=== PATIENT | male | born 1970 | race Caucasian/White ===

== ENCOUNTER 2018-06-29 13:20 | Emergency (ER) | payer OTHER ==
[2018-06-29 14:47] LABS: Absolute Lymphocytes (CBC) 2.2 K/uL (0.7-4.9); Absolute Monocytes 0.5 K/uL (0.1-1.3); Absolute Neutrophil 6.2 K/uL (1.8-8.0); Basophils % 1.2 % (0-1.3); Eosinophils % 3.9 % (0-4.4); Hematocrit 40.6 % (39.6-49.0); Lymphocytes % 23.3 % (15.3-44.8); MCH 32.1 pg (27.0-35.0); MCV 91.6 fL (80-100); MPV 9.7 fL (7.6-11.3); Monocytes % 4.9 % (3.3-12.3); RBC Red Blood Cell Count 4.43 M/uL (4.33-5.43)
[2018-06-29 14:51] LABS: Protime INR 0.98
[2018-06-29 14:54] LABS: Barbiturates NEGATIVE (NEGATIVE); Benzodiazepines NEGATIVE (NEGATIVE); Cocaine NEGATIVE (NEGATIVE); METHAMPHETAM POSITIVE (NEGATIVE); Methadone NEGATIVE (NEGATIVE); Opiates NEGATIVE (NEGATIVE); Phencyclidine NEGATIVE (NEGATIVE); THC Cannibis NEGATIVE (NEGATIVE)
[2018-06-29 15:08] LABS: ALT/SGPT 38 U/L (12-78); AST/SGOT 15 U/L (15-37); Albumin 3.4 g/dL (3.4-5.0); Alkaline Phosphatase 66 U/L (45-117); BUN Blood Urea Nitrogen 18 mg/dL (7-18); Bicarbonate 25 mmol/L (21-32); Bilirubin Direct 0.1 mg/dL (0-0.2); Bilirubin Total 0.3 mg/dL (0.2-1.0); Glucose Level 126 mg/dL (74-106); Potassium 4.3 mmol/L (3.5-5.1); Protein, Total 6.2 g/dL (6.4-8.2); Sodium Level 143 mmol/L (136-145)
--- NOTE | 2018-06-29 16:33 | EDPHYS ---
Physician Documentation [facility] Name: Derrick Phillips Age: 47 yrs Sex: Male : 1970 Arrival Date: 06/29/2018 Time: 13:25 Bed 19 Private MD: ED Physician Juventino Luna HPI: 06/29 13:54 This 47 yrs old Male presents to ER via Ambulatory with complaints of Psych jmm Problem. 13:54 The patient presents to the emergency department with psychosis, has experienced jmm auditory hallucinations, voices are telling patient to commit sucide. Onset: The symptoms/episode began/occurred at an unknown time. Past psychiatric history: Psychiatric medications include: none, the patient has a previous inpatient psychiatric history. This is a 47 year old male with a history of htn that presents to the ED with complaints of auditory hallucinations which are derogatory. Patient states walking onto incoming traffic, passing red lights due to distress from these voices. Patient states he can not read, watch tv, talk to others without hearing hallucinations. . Historical: - Allergies: 13:37 No Known Allergies; la1 - Home Meds: 13:45 None [Active]; rb1 - PMHx: 13:37 Bipolar disorder; BPH; Hypertension; Schizophrenia; traumatic brain injury; la1 - PSHx: 13:45 ankle sx; Knee surgery; Vasectomy; rb1 - Immunization history:: Adult Immunizations up to date. - Social history:: Smoking status: Patient uses tobacco products, smokes one-half pack cigarettes per day. - Ebola Screening: : No symptoms or risks identified at this time. ROS: 13:54 Constitutional: Negative for fever, chills, and weight loss, Cardiovascular: Negative jmm for chest pain, palpitations, and edema, Respiratory: Negative for shortness of breath, cough, wheezing, and pleuritic chest pain. 13:54 Psych: Positive for auditory hallucinations. 13:54 All other systems are negative. Exam: 13:54 Constitutional: This is a well developed, well nourished patient who is awake, alert, jmm and in no acute distress. Head/Face: atraumatic. Eyes: EOMI, no conjunctival erythema appreciated ENT: Moist Mucus Membranes Neck: Trachea midline, Supple Chest/axilla: Normal chest wall appearance and motion. Cardiovascular: Regular rate and rhythm. No edema appreciated Respiratory: Normal respirations, no respiratory distress appreciated Abdomen/GI: Non distended, soft Back: Normal ROM Skin: General appearance color normal MS/ Extremity: Moves all extremities, no obvious deformities appreciated, no edema noted to the lower extremities Neuro: Awake and alert, normal gait 13:54 Psych: Behavior/mood is pleasant, cooperative, anxious, Delusions/hallucinations Vital Signs: 13:38 BP 131 / 106; Pulse 86; Resp 16; Temp 97.4; Pulse Ox 98% on R/A; Weight 81.65 kg; la1 Height 5 ft. 9 in. (175.26 cm); 16:30 BP 138 / 88; Pulse 68; Resp 17; Temp 98.5(O); Pulse Ox 100% on R/A; rb1 17:20 BP 134 / 83; Pulse 82; Resp 17; Pulse Ox 98% on R/A; rb1 13:38 Body Mass Index 26.58 (81.65 kg, 175.26 cm) la1 MDM: 14:32 Patient medically screened. [facility] 16:31 Data reviewed: vital signs, nurses notes. Counseling: I had a detailed discussion with isabela the patient and/or guardian regarding: the historical points, exam findings, and any diagnostic results supporting the discharge/admit diagnosis, lab results, the need to transfer to another facility. ED course: I discussed the patient with Dr. Burton whom accepted transfer. 06/29 14:02 Order name: Urine Dipstick--Ancillary (enter results) 06/29 14:42 Order name: Basic Metabolic Panel; Complete Time: 15:20 [facility] 06/29 14:42 Order name: Liver (Hepatic) Function; Complete Time: 15:20 [facility] 06/29 14:42 Order name: Acetaminophen Level; Complete Time: 15:20 [facility] 06/29 14:42 Order name: Alcohol Serum/Plasma; Complete Time: 15:20 [facility] 06/29 13:54 Order name: EKG; Complete Time: 15:01 [facility] 06/29 13:54 Order name: EKG - Nurse/Tech; Complete Time: 14:47 [facility] 06/29 13:54 Order name: IV Saline Lock; Complete Time: 14:34 [facility] 06/29 13:54 Order name: Labs collected and sent; Complete Time: 14:34 [facility] 06/29 13:54 Order name: Urine Dipstick-Ancillary (obtain specimen); Complete Time: 14:34 [facility] 06/29 14:42 Order name: Salicylates Level; Complete Time: 15:00 [facility] 06/29 14:42 Order name: CBC with Automated Diff; Complete Time: 15:00 [facility] 06/29 14:42 Order name: Protime (+INR); Complete Time: 15:20 [facility] 06/29 14:42 Order name: PTT, Activated Partial Thromb; Complete Time: 15:20 [facility] 06/29 14:42 Order name: Urine Drug Screen; Complete Time: 15:00 [facility] 06/29 15:39 Order name: Diet Regular; Complete Time: 15:39 dh3 Administered Medications: No medications were administered Disposition: 18:08 Co-signature as Attending Physician, Juventino Luna MD. rn Disposition: 06/29/18 16:33 Transfer ordered to [facility]. Diagnosis are Unspecified psychosis not due to a substance or known physiological condition, Auditory hallucinations. - Reason for transfer: Higher level of care. - Accepting physician is Josephine. - Condition is Stable. - Problem is an acute exacerbation. - Symptoms are unchanged. Signatures: Dispatcher [employer] EDMS Albino Joshi PA PA [facility] Juventino Luna MD MD rn Attema, Lee, RN RN la1 Nu Moulton RN RN rb1 Corrections: (The following items were deleted from the chart) 15:34 15:00 ACETAMINOPHEN+C.LAB.BRZ ordered. EDMS EDMS 15:34 15:00 BASIC METABOLIC PANEL+C.LAB.BRZ ordered. EDMS EDMS 15:34 15:00 CBC+H.LAB.BRZ ordered. EDMS EDMS 15:34 15:00 ETHANOL+C.LAB.BRZ ordered. EDMS EDMS 15:34 15:00 HEPATIC FUNCTION+C.LAB.BRZ ordered. EDMS EDMS 15:34 15:01 PROTIME (+INR)+COAG.LAB.BRZ ordered. EDMS EDMS 15:34 15:01 PTT, ACTIVATED+COAG.LAB.BRZ ordered. EDMS EDMS 15:34 15:01 SALICYLATE+C.LAB.BRZ ordered. EDMS EDMS 15:34 15:01 URINE DRUG SCREEN+CHEM UR.LAB.BRZ ordered. EDMS EDMS 17:47 16:33 06/29/2018 16:33 Transfer ordered to Psych Facility. Diagnosis is Unspecified rb1 psychosis not due to a substance or known physiological condition; Auditory hallucinations. Reason for transfer: Higher level of care. Accepting physician is Josephine. Condition is Stable. Problem is an acute exacerbation. Symptoms are unchanged. isabela
--- NOTE | 2018-06-29 16:33 | ER ---
Nurse's Notes [facility] Name: Derrick Phillips Age: 47 yrs Sex: Male : 1970 Arrival Date: 06/29/2018 Time: 13:25 Bed 19 Private MD: Diagnosis: Unspecified psychosis not due to a substance or known physiological condition;Auditory hallucinations Presentation: 06/29 13:34 Presenting complaint:. Presenting complaint: Patient states: I am having auditory la1 hallucinations that are evil and telling me people are talking bad about me and telling me to do things like hang myself. Pt states he also has visual hallucinations (shadows etc). Transition of care: patient was not received from another setting of care. Onset of symptoms was June 29, 2018. Risk Assessment:. Risk Assessment: Do you want to hurt yourself or someone else? Patient reports desire/thoughts of hurting themselves or someone else. Provider notified. Initial Sepsis Screen: Does the patient meet any 2 criteria? No. Patient's initial sepsis screen is negative. Does the patient have a suspected source of infection? No. Patient's initial sepsis screen is negative. Care prior to arrival: None. 13:34 Method Of Arrival: Ambulatory la1 13:34 Acuity: AARON 2 la1 Historical: - Allergies: 13:37 No Known Allergies; la1 - Home Meds: 13:45 None [Active]; rb1 - PMHx: 13:37 Bipolar disorder; BPH; Hypertension; Schizophrenia; traumatic brain injury; la1 - PSHx: 13:45 ankle sx; Knee surgery; Vasectomy; rb1 - Immunization history:: Adult Immunizations up to date. - Social history:: Smoking status: Patient uses tobacco products, smokes one-half pack cigarettes per day. - Ebola Screening: : No symptoms or risks identified at this time. Screenin:45 Abuse screen: Denies threats or abuse. Nutritional screening: No deficits noted. rb1 Tuberculosis screening: No symptoms or risk factors identified. Fall Risk None identified. Assessment: 13:45 General: Appears comfortable, Behavior is anxious, Denies fever. Pain: Complains of rb1 pain in tooth left bottom jaw Pain currently is 6 out of 10 on a pain scale. Neuro: Level of Consciousness is awake, alert, obeys commands, Oriented to person, place, time, situation, Reports dizziness, weakness Hears auditory voices telling him to hurt himself. Pt. denies wanting to hurt himself or others, that is why he came here today to receive help. Cardiovascular: Capillary refill < 3 seconds is brisk in bilateral fingers. Respiratory: Airway is patent Respiratory effort is even, unlabored, Respiratory pattern is regular, symmetrical. GI: No signs and/or symptoms were reported involving the gastrointestinal system. : Reports hesitancy. Derm: Skin is pink, warm \\T\\ dry. Musculoskeletal: Range of motion: intact in all extremities. 14:45 Reassessment: Patient appears in no apparent distress at this time. No changes from rb1 previously documented assessment. Friend at bedside. 14:45 Reassessment: Patient appears in no apparent distress at this time. Patient and/or rb1 family updated on plan of care and expected duration. Pain level reassessed. Patient is alert, oriented x 3, equal unlabored respirations, skin warm/dry/pink. 15:20 Reassessment: Personal belongings were sent with security to the [facility]. rb1 15:40 Reassessment: Patient appears in no apparent distress at this time. No changes from rb1 previously documented assessment. 16:08 Reassessment: Spoke to ROSEMARY Luong from [facility]. Information from the [facility] was rb1 given. All questions asked and answered. 16:20 Reassessment: Spoke to ROSEMARY Solorzano at [facility]. Information from the [facility] was given. All rb1 questions asked and answered. Doctor Watkins [phone] for Doctor to doctor. 16:25 Reassessment: Spoke to ROSEMARY Frost. Information from the [facility] was given. All questions rb1 asked and answered. Dr. Bah for doctor to doctor. 16:40 Reassessment: Patient appears in no apparent distress at this time. Patient and/or rb1 family updated on plan of care and expected duration. Pain level reassessed. Patient is alert, oriented x 3, equal unlabored respirations, skin warm/dry/pink. 17:10 Reassessment: [facility] is here to transport the pt. but the pt. stated, "I rb1 changed my mind, I don't want to go now.". 17:15 Reassessment: Patient appears in no apparent distress at this time. No changes from rb1 previously documented assessment. Pt. wants to wait for his son to get here before he goes anywhere. the son is in the area and was stopping to get food before returning to the hospital. Pt. was given a sandwich, chips, and soda to eat. Psych: 13:45 Subjective: Hallucinations are auditory. Objective: Patient is cooperative, Speech is rb1 normal, Affect is appropriate. Interventions: Removed personal items and placed in bag. Patient placed in hospital gown. Searched person for dangerous items. Urine collected and sent for urine drug test. Belonging list filled out. Commitment: Patient will be a voluntary commitment. 13:45 Suicide Risk Assessment: Sad Person Scale: Sex of patient: Male: Score 1 point. Age of rb1 patient: Score 0 point if patient falls outside of specified age parameters. Depression: Score 1 point if signs of depression are present. Previous Attempt: Score 1 point if patient has previously attempted suicide. Substance Abuse: Score 1 point if patient abuses alcohol or drugs. Rational Thinking: Score 0 point if patient has rational thinking. Social Support: Score 0 if social support is present/available. Organized Plan: Score 0 if patient did not have an organized plan in place. Relationship: Score 1 point if patient is , , , or for a single male Chronic Sickness: Score 1 point if patient has illness, chronic, debilitating, or severe. TOTAL POINTS: If total points are 5-6, proposed clinical action is to strongly consider hospitalization, depending upon confidence in the follow-up arrangement. Implement suicide precautions. Patient uses methamphetamines unknown weekly. Last use was unknown. 13:45 Safety Checks: Personal items have been removed. Door is open. Visitors are present. rb1 Vital Signs: 13:38 BP 131 / 106; Pulse 86; Resp 16; Temp 97.4; Pulse Ox 98% on R/A; Weight 81.65 kg; la1 Height 5 ft. 9 in. (175.26 cm); 16:30 BP 138 / 88; Pulse 68; Resp 17; Temp 98.5(O); Pulse Ox 100% on R/A; rb1 17:20 BP 134 / 83; Pulse 82; Resp 17; Pulse Ox 98% on R/A; rb1 13:38 Body Mass Index 26.58 (81.65 kg, 175.26 cm) la1 ED Course: 13:25 Patient arrived in ED. sb2 13:36 Triage completed. la1 13:37 Arm band placed on right wrist. la1 13:40 Safety checks: Items removed: yes. Door open/sign placed on door: yes. Family/friend dh3 present: yes. Family/friends encouraged to stay with patient. Sitter present: Yes. 13:45 Safety checks: Items removed: yes. Door open/sign placed on door: yes. Family/friend dh3 present: yes. Family/friends encouraged to stay with patient. Sitter present: Yes. 13:45 Patient has correct armband on for positive identification. Placed in gown. Bed in low rb1 position. Side rails up X 1. Warm blanket given. 13:53 Albino Joshi PA is PHCP. [facility] 13:53 Juventino Luna MD is Attending Physician. [facility] 14:00 Safety checks: Items removed: yes. Door open/sign placed on door: yes. Family/friend dh3 present: yes. Family/friends encouraged to stay with patient. Sitter present: Yes. 14:00 Urine collected: clean catch specimen, clear. dh3 14:01 Nu Moulton, RN is Primary Nurse. [facility] 14:13 Initial lab(s) drawn, by me, sent to lab. Inserted saline lock: 20 gauge in right dh3 antecubital area, using aseptic technique. 14:15 Safety checks: Items removed: yes. Door open/sign placed on door: yes. Family/friend dh3 present: yes. Family/friends encouraged to stay with patient. Sitter present: Yes. 14:30 Safety checks: Items removed: yes. Door open/sign placed on door: yes. Family/friend dh3 present: yes. Family/friends encouraged to stay with patient. Sitter present: Yes. 14:45 Safety checks: Items removed: yes. Door open/sign placed on door: yes. Family/friend dh3 present: yes. Family/friends encouraged to stay with patient. Sitter present: Yes. 15:00 Safety checks: Items removed: yes. Door open/sign placed on door: yes. Family/friend dh3 present: yes. Family/friends encouraged to stay with patient. Sitter present: Yes. 15:15 Safety checks: Items removed: yes. Door open/sign placed on door: yes. Family/friend dh3 present: yes. Family/friends encouraged to stay with patient. Sitter present: Yes. 15:30 Safety checks: Items removed: yes. Door open/sign placed on door: yes. Family/friend dh3 present: yes. Family/friends encouraged to stay with patient. Sitter present: Yes. 15:45 Safety checks: Items removed: yes. Door open/sign placed on door: yes. Family/friend dh3 present: yes. Family/friends encouraged to stay with patient. Sitter present: Yes. 16:00 Safety checks: Items removed: yes. Door open/sign placed on door: yes. Family/friend dh3 present: yes. Family/friends encouraged to stay with patient. Sitter present: Yes. 16:15 Safety checks: Items removed: yes. Door open/sign placed on door: yes. Family/friend dh3 present: yes. Family/friends encouraged to stay with patient. Sitter present: Yes. 16:30 Safety checks: Items removed: yes. Door open/sign placed on door: yes. Family/friend dh3 present: yes. Family/friends encouraged to stay with patient. no. Sitter present: Yes. 16:45 Safety checks: Items removed: yes. Door open/sign placed on door: yes. Family/friend dh3 present: no. Sitter present: Yes. 17:00 Safety checks: Items removed: yes. Door open/sign placed on door: yes. Family/friend dh3 present: no. Sitter present: Yes. 17:15 Safety checks: Items removed: yes. Door open/sign placed on door: yes. Family/friend dh3 present: no. Sitter present: Yes. 17:30 Safety checks: Items removed: yes. Door open/sign placed on door: yes. Family/friend dh3 present: yes. Family/friends encouraged to stay with patient. Sitter present: Yes. 17:30 No provider procedures requiring assistance completed. IV discontinued, intact, rb1 bleeding controlled, No redness/swelling at site. Pressure dressing applied. Administered Medications: No medications were administered Outcome: 16:33 ER care complete, transfer ordered by MD. mar 17:30 Patient left the ED. rb1 17:30 Transferred by ground EMS to other acute care facility, Transfer form completed. Note: rb1 Transferred to [facility]. 17:30 Condition: stable 17:30 Instructed on the need for transfer. Signatures: Albino Joshi PA PA jmm Attema, Lee RN RN la1 Nu Moulton, RN RN rb1 Sadia Louise 3 Melony Schwartz2 Corrections: (The following items were deleted from the chart) 17:57 17:47 Patient left the ED. rb1 rb1 17:58 17:15 Reassessment: Pt. wants to wait for his son to get here before he goes anywhere. rb1 the son is in the area and was stopping to get food before returning to the hospital. Pt. was given a sandwich, chips, and soda to eat. rb1
[2018-06-29 19:13] VITALS: BP 138/88; TEMP 98.5; O2SAT 100
[2018-06-29 19:30] LABS: Urine Blood NEGATIVE (NEG); Urine Glucose NEGATIVE (NEG); Urine Protein NEGATIVE (NEG)
--- NOTE | 2018-06-30 08:30 | EKG ---
Test Date: 2018-06-29 Test Time: 14:45:49 [employer] Picker Machine Operator: NATALIE MEASUREMENT RESULTS: Intervals: Rate: 66 VA: 144 QRSD: 86 QT: 398 QTc: 417 [place]: P: 23 VA: 144 QRS: 44 T: 45 INTERPRETIVE STATEMENTS: Normal sinus rhythm Normal ECG Compared to ECG 10/01/2015 13:25:20 No significant changes Electronically Signed On 06-30-18 08:30:10 BLUNGER by Jeison Regalado
== END 2018-06-29 17:47 ==
LOC: ER 13:20
DX: F29 Unspecified psychosis not due to a substance or known physiological condition (principal); F17.210 Nicotine dependence, cigarettes, uncomplicated; I10 Essential (primary) hypertension; Z87.820 Personal history of traumatic brain injury
CPT/HCPCS: 36415; 80048; 80076; 80307; 80320; 80329; 81003; 85025; 85610; 85730; 93005; 99285

== ENCOUNTER 2019-03-15 05:12 | Emergency (ER) | payer OTHER ==
[2019-03-15] MEDS ORDERED: NA CHLORIDE 0.9% 1,000 ML ONE (05:36)
[2019-03-15] MEDS ORDERED: LORazepam 2 MG/ML VIAL ONE (05:36)
[2019-03-15] MEDS ORDERED: THIAMINE 200 MG/2 ML INJ ONE (05:36)
[2019-03-15] MEDS ORDERED: FOLIC ACID 5 MG/ML VIAL ONE (05:37)
[2019-03-15] MEDS ORDERED: MULTIVITAMINS 10 ML VIAL (INJ) IV ONE (05:37)
[2019-03-15 05:53] LABS: Absolute Lymphocytes (CBC) 3.7 K/uL (0.7-4.9); Basophils % 0.7 % (0-1.3); Hematocrit 44.8 % (39.6-49.0); Lymphocytes % 38.2 % (15.3-44.8); RBC Red Blood Cell Count 5.01 M/uL (4.33-5.43)
[2019-03-15 06:00] LABS: Protime INR 0.8
[2019-03-15 06:21] LABS: ALT/SGPT 49 U/L (12-78); AST/SGOT 33 U/L (15-37); Albumin 3.7 g/dL (3.4-5.0); Alkaline Phosphatase 70 U/L (45-117); BUN Blood Urea Nitrogen 17 mg/dL (7-18); Bicarbonate 25 mmol/L (21-32); Bilirubin Direct 0.1 mg/dL (0-0.2); Bilirubin Total 0.3 mg/dL (0.2-1.0); Glucose Level 96 mg/dL (74-106); Potassium 3.8 mmol/L (3.5-5.1); Protein, Total 7.2 g/dL (6.4-8.2); Sodium Level 143 mmol/L (136-145)
[2019-03-15 06:40] LABS: Barbiturates NEGATIVE (NEGATIVE); Benzodiazepines NEGATIVE (NEGATIVE); Cocaine NEGATIVE (NEGATIVE); METHAMPHETAM NEGATIVE (NEGATIVE); Methadone NEGATIVE (NEGATIVE); Opiates NEGATIVE (NEGATIVE); Phencyclidine NEGATIVE (NEGATIVE); THC Cannibis NEGATIVE (NEGATIVE)
[2019-03-15] MEDS ORDERED: ONDANSETRON 4 MG/2 ML VIAL ONE (06:59)
--- NOTE | 2019-03-15 07:51 | EDPHYS ---
Physician Documentation [facility] Name: Derrick Phillips Age: 48 yrs Sex: Male : 1970 Arrival Date: 03/15/2019 Time: 05:13 Bed 6 Private MD: ED Physician Yovany Morgan HPI: 03/15 07:49 This 48 yrs old Male presents to ER via Ambulatory with complaints of Blood jr8 Pressure Problem, HEARS THINGS IN HIS HEAD. 07:54 The patient presents to the emergency department with psychosis, has experienced jr8 auditory hallucinations, a history of substance abuse, Type: vodka, 1/5 to 1/2 per day. Onset: The symptoms/episode began/occurred gradually, 1 year(s) ago. Past psychiatric history: Prior diagnosis: bipolar disorder, schizophrenia, Psychiatric medications include: none. Associated signs and symptoms: The patient has no apparent associated signs or symptoms. Severity of symptoms: At their worst the symptoms were moderate in the emergency department the symptoms are unchanged. It is unknown whether or not the patient has had similar symptoms in the past. The patient has not recently seen a physician. Patient stated that since he has been off of his medication for over a year he has been struggling with voices and has been self medicating with alcohol to help so the voices do not make him become more depressed and suicidal. Came to ED today to get help so he can stop drinking and get back on his medications. He is worried that he will become suicidal . Historical: - Allergies: 05:34 No Known Allergies; fc - Home Meds: 05:34 None [Active]; fc - PMHx: 05:34 Bipolar disorder; BPH; Schizophrenia; Hypertension; traumatic brain injury; fc - PSHx: 05:34 ankle sx; Knee surgery; Vasectomy; fc - Immunization history:: Last tetanus immunization: up to date. - Social history:: Smoking status: Patient uses tobacco products, smokes one-half pack cigarettes per day, Patient uses alcohol, daily - 1/2 gallon of vodka. Patient/guardian denies using street drugs. - Ebola Screening: : Patient negative for fever greater than or equal to 101.5 degrees Fahrenheit, and additional compatible Ebola Virus Disease symptoms Patient denies exposure to infectious person Patient denies travel to an Ebola-affected area in the 21 days before illness onset. ROS: 07:54 Eyes: Negative for injury, pain, redness, and discharge, ENT: Negative for injury, jr8 pain, and discharge, Neck: Negative for injury, pain, and swelling, Cardiovascular: Negative for chest pain, palpitations, and edema, Respiratory: Negative for shortness of breath, cough, wheezing, and pleuritic chest pain, Abdomen/GI: Negative for abdominal pain, nausea, vomiting, diarrhea, and constipation, Back: Negative for injury and pain, MS/Extremity: Negative for injury and deformity, Skin: Negative for injury, rash, and discoloration, Neuro: Negative for headache, weakness, numbness, tingling, and seizure. 07:54 Psych: Positive for anxiety, alcohol dependence, auditory hallucinations. Exam: 07:54 Eyes: Pupils equal round and reactive to light, extra-ocular motions intact. Lids and jr8 lashes normal. Conjunctiva and sclera are non-icteric and not injected. Cornea within normal limits. Periorbital areas with no swelling, redness, or edema. ENT: Nares patent. No nasal discharge, no septal abnormalities noted. Tympanic membranes are normal and external auditory canals are clear. Oropharynx with no redness, swelling, or masses, exudates, or evidence of obstruction, uvula midline. Mucous membranes moist. Neck: Trachea midline, no thyromegaly or masses palpated, and no cervical lymphadenopathy. Supple, full range of motion without nuchal rigidity, or vertebral point tenderness. No Meningismus. Cardiovascular: Regular rate and rhythm with a normal S1 and S2. No gallops, murmurs, or rubs. Normal PMI, no JVD. No pulse deficits. Respiratory: Lungs have equal breath sounds bilaterally, clear to auscultation and percussion. No rales, rhonchi or wheezes noted. No increased work of breathing, no retractions or nasal flaring. Abdomen/GI: Soft, non-tender, with normal bowel sounds. No distension or tympany. No guarding or rebound. No evidence of tenderness throughout. Back: No spinal tenderness. No costovertebral tenderness. Full range of motion. Skin: Warm, dry with normal turgor. Normal color with no rashes, no lesions, and no evidence of cellulitis. MS/ Extremity: Pulses equal, no cyanosis. Neurovascular intact. Full, normal range of motion. Neuro: Awake and alert, GCS 15, oriented to person, place, time, and situation. Cranial nerves II-XII grossly intact. Motor strength 5/5 in all extremities. Sensory grossly intact. Cerebellar exam normal. Normal gait. 07:54 Psych: Behavior/mood is cooperative, anxious, Affect is calm, Oriented to person, place, time, Patient has no thoughts/intents to harm self or others. Judgement / Insight is normal. Memory is normal. Delusions/hallucinations are present and described as see hpi. Vital Signs: 05:15 BP 163 / 118; Pulse 100; Resp 18; Temp 97.9(O); Pulse Ox 98% on R/A; Weight 90.72 kg fc (R); Height 5 ft. 9 in. (175.26 cm) (R); Pain 0/10; 06:31 BP 150 / 118; Pulse 82; Resp 18; Temp 97.9; Pulse Ox 98% on R/A; Pain 0/10; ak1 07:32 BP 140 / 97; Pulse 73; Resp 16; Pulse Ox 98% ; sv 08:05 BP 145 / 98; Pulse 84; Resp 20; Pulse Ox 99% ; sv 08:55 BP 141 / 98; Pulse 77; Resp 18; Pulse Ox 99% ; sv 05:15 Body Mass Index 29.53 (90.72 kg, 175.26 cm) MDM: 06:12 Patient medically screened[address] [facility] 07:47 Data reviewed: vital signs, nurses notes, lab test result(s), EKG. Data interpreted: 8 Pulse oximetry: on room air is 98 %. Interpretation: normal. Counseling: I had a detailed discussion with the patient and/or guardian regarding: the historical points, exam findings, and any diagnostic results supporting the discharge/admit diagnosis, lab results, the need to transfer to another facility, [facility] does not immediately have the required specialist. ED course: Consulted Dr. Griffith who accepted at [facility] . 03/15 05:34 Order name: Acetaminophen 03/15 05:34 Order name: Basic Metabolic Panel 03/15 05:34 Order name: CBC with Diff 03/15 05:34 Order name: ETOH Level; Complete Time: 06:26 03/15 05:34 Order name: Hepatic Function; Complete Time: 06:26 03/15 05:34 Order name: PT-INR; Complete Time: 06:26 03/15 05:34 Order name: Ptt, Activated; Complete Time: 06:26 03/15 05:34 Order name: Salicylate; Complete Time: 07:01 03/15 05:34 Order name: Urine Drug Screen; Complete Time: 07:01 fc 03/15 05:36 Order name: Acetaminophen Level; Complete Time: 06:26 EDMS 03/15 05:37 Order name: Basic Metabolic Panel; Complete Time: 06:26 EDMS 03/15 05:37 Order name: CBC with Automated Diff; Complete Time: 06:14 EDMS 03/15 06:27 Order name: Urine Dipstick--Ancillary (enter results); Complete Time: 16:48 ar5 03/15 05:34 Order name: EKG; Complete Time: 05:37 03/15 05:34 Order name: EKG - Nurse/Tech; Complete Time: 05:51 03/15 05:34 Order name: IV Saline Lock; Complete Time: 05:51 03/15 05:34 Order name: Labs collected and sent; Complete Time: 05:51 03/15 05:34 Order name: Urine Dipstick-Ancillary (obtain specimen); Complete Time: 06:34 fc Administered Medications: 05:50 Drug: Ativan 1 mg Route: IVP; Site: right forearm; ao 06:34 Follow up: Response: No adverse reaction ak1 05:51 Drug: Banana Bag - (NS 0.9% 1000 ml, foLIC Acid 1 mg, Thiamine 100 mg, Multivitamin 1 ao amp) Route: IV; Rate: 250 ml/hr; Site: right forearm; 09:09 Follow up: Response: No adverse reaction; IV Status: Completed infusion; IV Intake: sv 1000ml 07:00 Drug: Zofran 4 mg Route: IVP; Site: right antecubital; fc 07:32 Follow up: Response: No adverse reaction sv 08:32 Drug: TORadol - Ketorolac 15 mg Route: IVP; Site: right forearm; sv 09:09 Follow up: Response: No adverse reaction sv 09:17 Drug: Zofran 4 mg Route: PO; sv 09:17 Follow up: Response: Medication administered at discharge. sv Disposition: 03/15/19 07:49 Transfer ordered to Psych Facility. Diagnosis are Alcohol abuse with intoxication, uncomplicated, Bipolar disorder, Schizophrenia, Auditory hallucinations. - Reason for transfer: Higher level of care. - Accepting physician is Dr. Griffith. - Condition is Stable. - Problem is new. - Symptoms have improved. Addendum: 03/18/2019 19:01 Co-signature as Attending Physician, Yovany ricks Signatures: Dispatcher [employer] EDDelia James RN RN Yovany Fontaine MD MD pkIvonne Rivera RN RN Rashad Mathews PA PA jr8 Rickie Sumner RN RN Adele Owens RN ak1 Corrections: (The following items were deleted from the chart) 03/15 07:49 07:49 03/15/2019 07:49 Transfer ordered to Psych Facility. Diagnosis is Alcohol abuse jr8 with intoxication, uncomplicated; Bipolar disorder; Schizophrenia. Reason for transfer: Higher level of care. Accepting physician is Dr. Griffith. Condition is Stable. Problem is new. Symptoms have improved. jr8 09:17 07:49 03/15/2019 07:49 Transfer ordered to Psych Facility. Diagnosis is Alcohol abuse sv with intoxication, uncomplicated; Bipolar disorder; Schizophrenia; Auditory hallucinations. Reason for transfer: Higher level of care. Accepting physician is Dr. Griffith. Condition is Stable. Problem is new. Symptoms have improved. jr8
--- NOTE | 2019-03-15 07:51 | ER ---
Nurse's Notes [facility] Name: Derrick Phillips Age: 48 yrs Sex: Male : 1970 Arrival Date: 03/15/2019 Time: 05:13 Bed 6 Private MD: Diagnosis: Alcohol abuse with intoxication, uncomplicated;Bipolar disorder;Schizophrenia;Auditory hallucinations Presentation: 03/15 05:15 Presenting complaint: Patient states: that he normally drinks a 1/2 gallon of Vodka a day. Tonight since midnight he has had 1/5 of a gallon. Pt even came in with power aid bottle with vodka in it. States that right now he is feeling anxious, shaking, hearing things (like the tv which is egging him on to ) and is feeling very hot (almost as if he is burning inside). States he just wants help. Transition of care: patient was not received from another setting of care. Onset of symptoms was March 15, 2019. Risk Assessment: Do you want to hurt yourself or someone else? Patient reports no desire to harm self or others. Initial Sepsis Screen: Does the patient meet any 2 criteria? HR > 90 bpm. Yes Does the patient have a suspected source of infection? No. Patient's initial sepsis screen is negative. Care prior to arrival: None. 05:15 Method Of Arrival: Ambulatory 05:15 Acuity: AARON 2 Historical: - Allergies: 05:34 No Known Allergies; fc - Home Meds: 05:34 None [Active]; fc - PMHx: 05:34 Bipolar disorder; BPH; Schizophrenia; Hypertension; traumatic brain injury; fc - PSHx: 05:34 ankle sx; Knee surgery; Vasectomy; fc - Immunization history:: Last tetanus immunization: up to date. - Social history:: Smoking status: Patient uses tobacco products, smokes one-half pack cigarettes per day, Patient uses alcohol, daily - 1/2 gallon of vodka. Patient/guardian denies using street drugs. - Ebola Screening: : Patient negative for fever greater than or equal to 101.5 degrees Fahrenheit, and additional compatible Ebola Virus Disease symptoms Patient denies exposure to infectious person Patient denies travel to an Ebola-affected area in the 21 days before illness onset. Screenin:32 Abuse screen: Denies threats or abuse. Nutritional screening: No deficits noted. fc Tuberculosis screening: No symptoms or risk factors identified. Fall Risk None identified. Assessment: 05:30 Reassessment: pt stated he brought in vodka in the poweraid bottle. pt informed he can ak1 not have alcohol in the ER, pt agreed to allow this nurse to dispose of his vodka. this nurse spoke with the charge nurse and Dr. Morgan and the vodka was poured down the sink drain. pt states he wants help to stop drinking. pt stated he feels as if he can not function if he does not drink daily. pt is restless but calm and cooperative. General: Appears in no apparent distress. Behavior is cooperative, agitated, anxious. Pain: Denies pain. Neuro: Level of Consciousness is awake, alert, obeys commands, Oriented to person, place, time, situation, Claim Adjuster are equal bilaterally Moves all extremities. Gait is steady, Speech normal, rapid. Facial symmetry appears normal. Cardiovascular: No deficits noted. Respiratory: Airway is patent Respiratory effort is even, unlabored, Respiratory pattern is regular. GI: No signs and/or symptoms were reported involving the gastrointestinal system. : No signs and/or symptoms were reported regarding the genitourinary system. EENT: No signs and/or symptoms were reported regarding the EENT system. Derm: No signs and/or symptoms reported regarding the dermatologic system. Musculoskeletal: No signs and/or symptoms reported regarding the musculoskeletal system. 05:45 Reassessment: pt denies SI or HI only asked to speak to someone "a psych doc" to get ak1 help. 06:25 Reassessment: [facility] at bedside discussing options with pt. ak 06:53 Reassessment: Kassandra Edmonds. ao 07:10 General: Appears in no apparent distress. comfortable, Behavior is calm, cooperative, sv appropriate for age. Pain: Denies pain. Neuro: Level of Consciousness is awake, alert, obeys commands, Oriented to person, place, time, situation, Moves all extremities. Full function Speech is normal. Respiratory: Airway is patent Respiratory effort is even, unlabored, Respiratory pattern is regular, symmetrical. Derm: Skin is pink, warm \\T\\ dry. 08:30 Reassessment: Patient appears in no apparent distress at this time. Patient and/or sv family updated on plan of care and expected duration. Pain level reassessed. Patient is alert, oriented x 3, equal unlabored respirations, skin warm/dry/pink. c/o RANDOLPH, informed Rashad RANDALL; medication ordered, See SEP. 09:09 Reassessment: Patient appears in no apparent distress at this time. No changes from sv previously documented assessment. Patient and/or family updated on plan of care and expected duration. Pain level reassessed. Patient is alert, oriented x 3, equal unlabored respirations, skin warm/dry/pink. Vital Signs: 05:15 BP 163 / 118; Pulse 100; Resp 18; Temp 97.9(O); Pulse Ox 98% on R/A; Weight 90.72 kg fc (R); Height 5 ft. 9 in. (175.26 cm) (R); Pain 0/10; 06:31 BP 150 / 118; Pulse 82; Resp 18; Temp 97.9; Pulse Ox 98% on R/A; Pain 0/10; ak1 07:32 BP 140 / 97; Pulse 73; Resp 16; Pulse Ox 98% ; sv 08:05 BP 145 / 98; Pulse 84; Resp 20; Pulse Ox 99% ; sv 08:55 BP 141 / 98; Pulse 77; Resp 18; Pulse Ox 99% ; sv 05:15 Body Mass Index 29.53 (90.72 kg, 175.26 cm) fc ED Course: 05:13 Patient arrived in ED. ag3 05:15 Arm band placed on Patient placed in an exam room, on a stretcher. fc 05:31 Triage completed. fc 05:32 Patient has correct armband on for positive identification. Placed in gown. Bed in low fc position. Call light in reach. Side rails up X2. geographical historian on. Pulse ox on. NIBP on. 05:32 No provider procedures requiring assistance completed. fc 05:35 Inserted saline lock: 20 gauge in right forearm, using aseptic technique. Blood ak1 collected. 05:35 Initial lab(s) drawn, by me, sent to lab. EKG done, by ED staff. ak1 05:47 Adele Suresh, RN is Primary Nurse. ak1 06:12 Rashad Philippe PA is PHCP. jr8 06:12 Yovany Morgan MD is Attending Physician. jr8 07:11 Primary Nurse role handed off by Adele Suresh, ROSEMARY sv 07:11 Delia Mercado, RN is Primary Nurse. sv 07:31 Acetaminophen Sent. sv 07:31 Basic Metabolic Panel Sent. sv 07:31 CBC with Diff Sent. sv 09:08 IV discontinued, intact, bleeding controlled, No redness/swelling at site. Pressure sv dressing applied. Administered Medications: 05:50 Drug: Ativan 1 mg Route: IVP; Site: right forearm; ao 06:34 Follow up: Response: No adverse reaction ak1 05:51 Drug: Banana Bag - (NS 0.9% 1000 ml, foLIC Acid 1 mg, Thiamine 100 mg, Multivitamin 1 ao amp) Route: IV; Rate: 250 ml/hr; Site: right forearm; 09:09 Follow up: Response: No adverse reaction; IV Status: Completed infusion; IV Intake: sv 1000ml 07:00 Drug: Zofran 4 mg Route: IVP; Site: right antecubital; fc 07:32 Follow up: Response: No adverse reaction sv 08:32 Drug: TORadol - Ketorolac 15 mg Route: IVP; Site: right forearm; sv 09:09 Follow up: Response: No adverse reaction sv 09:17 Drug: Zofran 4 mg Route: PO; sv 09:17 Follow up: Response: Medication administered at discharge. sv Intake: 09:09 IV: 1000ml; Total: 1000ml. sv Outcome: 07:49 ER care complete, transfer ordered by jrJessica 09:08 Transferred by ground EMS Transfer form completed. Note: [facility], report given sv to EMS. 09:08 Condition: stable 09:08 Instructed on the need for transfer. 09:17 Patient left the ED. sv Signatures: Delia Mercado RN RN sv Chretien, Felicia, RN RN Rashad Philippe PA PA jr8 Adele Suresh, RN RN Rickie Garcia, RN Carmina George
[2019-03-15] MEDS ORDERED: KETOROLAC 30 MG/ML INJ ONE (08:30)
[2019-03-15 09:03] LABS: Urine Blood NEGATIVE (NEG); Urine Glucose NEGATIVE (NEG); Urine Protein NEGATIVE (NEG); Urine pH 6.5 (5.0-7.0)
[2019-03-15] MEDS ORDERED: ONDANSETRON 4 MG (ODT) TAB ONE (09:16)
[2019-03-15 09:34] VITALS: TEMP 97.9
[2019-03-15 09:39] VITALS: BP 141/98; O2SAT 99
--- NOTE | 2019-03-15 13:48 | EKG ---
Test Date: 2019-03-15 Test Time: 05:30:51 Flexo Press Operator: LEN MEASUREMENT RESULTS: Intervals: Rate: 86 [place]: 158 QRSD: 92 QT: 370 QTc: 442 [place]: P: 31 [place]: 158 QRS: 30 T: 44 INTERPRETIVE STATEMENTS: Normal sinus rhythm Normal ECG Compared to ECG 06/29/2018 14:45:49 No significant changes Electronically Signed On 03-15-19 13:47:15 CDT by Luis Felipe Prado
== END 2019-03-15 09:17 ==
LOC: ER 05:12
DX: F10.229 Alcohol dependence with intoxication, unspecified (principal); F20.9 Schizophrenia, unspecified; F31.9 Bipolar disorder, unspecified; I10 Essential (primary) hypertension; F17.210 Nicotine dependence, cigarettes, uncomplicated; Z87.820 Personal history of traumatic brain injury
CPT/HCPCS: 93005; 85025; 80048; 36415; 80320; 80329 ×2; 85610; 82962; 80076; 80307 ×8; 85730; 81003; 99285; J3411; J7030; J2405; 96365; 96366; 96375